=== PATIENT | female | born 1975 | race Caucasian/White ===

== ENCOUNTER 2023-02-12 10:24 | Outpatient (REF) | payer OTHER, SELFPAY ==
[2023-02-12 11:26] LABS: MANUAL DIFF FLAG NO
[2023-02-12 11:41] LABS: Basophils Percent Auto 0.9 % (0-2); Eosinophils Absolute Auto 0.1 X10*3/uL (0.0-0.4); Eosinophils Percent Auto 1.8 % (0-4); Hematocrit 43.3 % (37.0-47.0); Hemoglobin 14.6 g/dl (12.0-16.0); Imm Gran Abs Auto 0.01 X10*3/uL (0.00-0.03); Imm Gran Pct Auto 0.2 % (0.0-0.4); Lymphocytes Absolute Auto 1.5 X10*3/uL (1.2-4.9); Lymphocytes Percent Auto 33.9 % (20-40); Mean Corpuscular HGB Conc 33.7 g/dl (31.0-35.0); Mean Corpuscular Hemoglobin 30.7 pg (27.0-33.0); Monocytes Absolute Auto 0.3 X10*3/uL (0.1-1.2); Monocytes Percent Auto 7.7 % (2-11); Neutrophils Absolute Auto 2.4 x10*3/uL (2.0-8.3); Neutrophils Percent Auto 55.5 % (45-73); Platelet Count 259 X10*3/uL (160-400); Red Blood Count 4.76 X10*6/uL (4.20-5.50); Red Cell Distribution Width 12.2 % (11.0-16.0); White Blood Count 4.4 X10*3/uL (4.8-10.8)
[2023-02-12 12:40] LABS: Erythrocyte Sedimentation Rate 18 MM/HR (0-20)
[2023-02-13 10:23] LABS: Immunoglobulin E 1099 kU/L (<OR=114)
[2023-02-13 16:43] LABS: IgA 410 mg/dL (47-310); IgG 1759 mg/dL (600-1640); IgM 231 mg/dL (50-300)
== END 2023-02-12 10:25 | disposition home or self-care (01) ==
LOC: HO.LAB 10:24
PROVIDERS: PCP Internal Medicine; Visit Provider Hospitalist
DX: J45.50 Severe persistent asthma, uncomplicated (principal); J30.9 Allergic rhinitis, unspecified
CPT/HCPCS: 36415; 82784; 82785; 85025; 85652; 99202

== ENCOUNTER → 2023-05-15 09:56 | Outpatient (BNVA) | payer OTHER, SELFPAY | PROVIDERS: PCP Internal Medicine; Visit Provider Hospitalist | DX: J45.50 Severe persistent asthma, uncomplicated (principal); J30.9 Allergic rhinitis, unspecified | CPT/HCPCS: 99212 ==

== ENCOUNTER 2023-08-23 10:13 | Outpatient (AMB) | payer OTHER, SELFPAY ==
--- NOTE | 2023-08-23 10:19 | A.OFFVIS_ITS ---
Intake Vital Signs 08/23/23 10:20 Height 5 ft Weight 200 lb BMI 39.1 Pulse 74 Pulse Source Pulse Oximeter Pulse Oximetry (%) 98 Oxygen Delivery Method Room Air Intake Visit Reasons: asthma Agricultural Services Director Required: No Allergies No Known Allergies Allergy (Verified 08/23/23 10:21) HPI HPI Comments History of Present Illness Details The patient is a 47-year-old woman with severe persistent asthma and significant allergies. She is followed closely by allergy immunology in currently on Nucala for biologic therapy. However, she feels like her asthma is under control. Having daily symptoms. She is having to use her inhaler regularly. She also complains of significant nasal congestion postnasal drip and sinus is headaches. The appears that nasal congestion has been getting worse. The Nucala does help her symptoms but usually after 3 weeks after the injection that stops working and she becomes very symptomatic. She has not tried any other biologics. We did review her previous pulmonary function studies from 2019 which demonstrated significant small airways disease and significant air trapping due to her significant on her own she did recently have PFTs although I do not have those available. Will go ahead and try to maximize her respiratory therapy. In addition to this will go ahead and start her on therapies for her nasal congestion including budesonide she can also try. After the blood work will be able to consider other potential medication changes. 05/15/2023 the patient is here for a pulmonary follow-up visit. She continues to have a hard time with breathing. Always has significant asthma and wheezing. Patient symptoms are uncontrolled. She was switched over to Trelegy but she does not like the powder. She weather been Symbicort. Therefore she can go back on Symbicort I will add Spiriva to her regimen. She continues on Nucala. She feels the Nucala is partially helpful. We did review her blood work. Her IgE level is above a 1000 and eosinophil levels are okay right now. I do believe that with her significant rhinosinusitis asthma that she will do better on Dupixent. She will follow up with her manager compensation and decided this is a good option. In meantime will continue to optimize her respiratory therapy. 08/23/2023 the patient is here for a pulmonary follow-up visit. She is having hard time with her asthma. Having significant wheezing. Moderate severity. Has been using her rescue inhaler multiple times a day. She is very adherent to her respiratory therapy. However, only partially helpful. The patient had been on biologic therapy with Nucala. However was not helping and then she was stopped due to insurance issues. We did review her blood work demonstrating significant elevations in her IgE and allergies in addition to that she had elevations in the eosinophils prior to starting the IO 5 inhibitor. At this point I believe that based on her allergies in his symptoms the patient should be restarted on biologic therapy at this point Dupixent to better cover her asthma and also her allergic rhinitis. The patient in the meantime will need some prednisone from her going asthma exacerbation. She will continue with the nasal rinsing therapy and also respiratory therapy at this time. The patient also has some lower extremity edema. I believe that this is also affecting her respiratory status therefore will provide her with 3 days of Lasix to better improve her volume status. The patient already is practicing a low-sodium diet and she will continue. I suspect that is small that steroids that she is been on that is been causing her to have fluid retention. [facility] Medical History (Updated 08/25/23 @ 20:37 by Vidal Beard MD) Chronic allergic rhinitis Asthma Social History (Updated 02/12/23 @ 10:41 by Dinora Trammell Dave) Patient Tobacco Use Status: Never used Tobacco Review of Systems Const Denies fever(s) Eyes Denies change in vision ENT Reports nasal congestion, Reports nasal discharge, Reports nasal obstruction and Reports post nasal drip Card Denies chest pain Resp Reports cough and Reports wheezing GI Reports no additional complaints Musc Reports no additional complaints Skin/Breast Denies rash Neuro Reports no additional complaints Sinan/Lymph Denies easy bruising and Denies lymphadenopathy Aller/Immun Reports wheezing Physical Exam Vital Signs: Last Vital Signs Pulse 74 08/23/23 10:20 Pulse Ox 98 08/23/23 10:20 Oxygen Delivery Method Room Air 08/23/23 10:20 BMI result Body Mass Index 39.1 Const General: healthy appearing and comfortable HEENT General nose exam: Abnormal mucous membranes and turbinates present erythematous Eyes General: appearance normal, both eyes and all related structures Neck Neck: Yes supple Chest Chest palpation & inspection: normal inspection of the chest Resp Effort & Inspection: prolonged expiratory phase Auscultation: wheezes and diminished lung sounds Cardio Rate: regular rate Rhythm: regular rhythm Heart sounds: S1 normal heart sound present and S2 normal heart sound present GI Palpation (GI): Soft to palpation Skin General skin exam: no rashes or lesions noted Extrem General: No clubbing, No cyanosis and Yes edema Immunizations pneumoc 20-mindy conj-dip cr(PF) 0.5 mL IM syringe Performing Provider: Vidal Beard MD Performing Location: [facility] [place] Pul[facility] Administered by: Sintia Streeter LPN on 08/23/23 10:55 Dose Route Admin Location Dispensed Lot Number Expiration Date NDC Mercerizing Range Feeder 0.5 mL IM Left Deltoid 0.5 mL [id number] 10/01/24 2648-7793-35 [employer] VIS Given Date VIS Provided VIS Publication Date 08/23/23 Single Vaccine 23 Eligibility Eligibility Date Funding Source Not [facility] Eligible 08/23/23 Private Assessment & Plan Assessment & Plan (1) Asthma: Code(s): J45.909 - Unspecified asthma, uncomplicated Qualifiers: Asthma complication type: with acute exacerbation Asthma persistence: persistent Asthma severity: severe Qualified Code(s): J45.51 - Severe persistent asthma with (acute) exacerbation (2) Chronic allergic rhinitis: Code(s): J30.9 - Allergic rhinitis, unspecified Plan continue symbicort continue Spiriva JUAN as needed. Has a nebulizer available start Prednisone taper lasix x 3 days continue zyrtec continue Singulair Neti bottle stopped Nucala, start Dupixent F/U 2-3 months Orders: Orders Pneumococcal 20 Immunization 08/23/23 Z23 - Encounter for immunization Medications: New furosemide (Lasix) 20 mg PO DAILY 5 days 5 tabs 0RF prednisone PO daily; Take 2 tabs daily x 5 days, then 1 tablet daily x 5 days 10 days 15 tabs 0RF Coding Level of Care Code Est Pt Level 4 (56946) Diagnoses Severe persistent asthma with acute exacerbation J45.51 Asthma complication type: with acute exacerbation Asthma persistence: persistent Asthma severity: severe Chronic allergic rhinitis J30.9 Time Spent (min) 17
[2023-08-23 10:20] VITALS: PULSE 74; O2SAT 98; BMI 39.1
== END 2023-08-23 10:44 | disposition home or self-care (01) ==
PROVIDERS: PCP Internal Medicine; Visit Provider Hospitalist
DX: J45.51 Severe persistent asthma with (acute) exacerbation (principal); J30.9 Allergic rhinitis, unspecified
CPT/HCPCS: 99214

== ENCOUNTER → 2023-08-23 10:13 | Outpatient (BNVA) | payer OTHER, SELFPAY | PROVIDERS: PCP Internal Medicine; Visit Provider Hospitalist | DX: J45.51 Severe persistent asthma with (acute) exacerbation (principal); J30.9 Allergic rhinitis, unspecified; Z79.899 Other long term (current) drug therapy; Z23 Encounter for immunization | CPT/HCPCS: 90471; 90677; 99212 ==

== ENCOUNTER 2023-11-27 10:18 | Outpatient (AMB) | payer OTHER, SELFPAY ==
--- NOTE | 2023-11-27 10:37 | A.OFFVIS_ITS ---
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 She is followed closely by allergy immunology in currently on Nucala for biologic therapy. However, she feels like her asthma is under control. Having daily symptoms. She is having to use her inhaler regularly. She also complains of significant nasal congestion postnasal drip and sinus is headaches. The appears that nasal congestion has been getting worse. The Nucala does help her symptoms but usually after 3 weeks after the injection that stops working and she becomes very symptomatic. She has not tried any other biologics. We did review her previous pulmonary function studies from 2019 which demonstrated significant small airways disease and significant air trapping due to her significant on her own she did recently have PFTs although I do not have those available. Will go ahead and try to maximize her respiratory therapy. In addition to this will go ahead and start her on therapies for her nasal congestion including budesonide she can also try. After the blood work will be able to consider other potential medication changes. 05/15/2023 the patient is here for a pulmonary follow-up visit. She continues to have a hard time with breathing. Always has significant asthma and wheezing. Patient symptoms are uncontrolled. She was switched over to Trelegy but she does not like the powder. She weather been Symbicort. Therefore she can go back on Symbicort I will add Spiriva to her regimen. She continues on Nucala. She feels the Nucala is partially helpful. We did review her blood work. Her IgE level is above a 1000 and eosinophil levels are okay right now. I do believe that with her significant rhinosinusitis asthma that she will do better on Dupixent. She will follow up with her lining stitcher and decided this is a good option. In meantime will continue to optimize her respiratory therapy. 08/23/2023 the patient is here for a pulmonary follow-up visit. She is having hard time with her asthma. Having significant wheezing. Moderate severity. Has been using her rescue inhaler multiple times a day. She is very adherent to her respiratory therapy. However, only partially helpful. The patient had been on biologic therapy with Nucala. However was not helping and then she was stopped due to insurance issues. We did review her blood work demonstrating significant elevations in her IgE and allergies in addition to that she had elevations in the eosinophils prior to starting the IO 5 inhibitor. At this point I believe that based on her allergies in his symptoms the patient should be restarted on biologic therapy at this point Dupixent to better cover her asthma and also her allergic rhinitis. The patient in the meantime will need some prednisone from her going asthma exacerbation. She will continue with the nasal rinsing therapy and also respiratory therapy at this time. The patient also has some lower extremity edema. I believe that this is also affecting her respiratory status therefore will provide her with 3 days of Lasix to better improve her volume status. The patient already is practicing a low-sodium diet and she will continue. I suspect that is small that steroids that she is been on that is been causing her to have fluid retention. 11/27/2023 the patient is here for a pulmonary follow-up visit. She has doing a lot better. She started the Dupixent injections. She has been tolerating them well. Her asthma has been significantly improved. She has been able to c ut down on some of the inhalers. As far as adverse effects she has noticed some heaviness with the eyes and some nasal congestion but it is tolerable. Will continue to monitor for any evidence of conjunctivitis. In the meantime the patient has been off prednisone which is very reassuring. Her respiratory exam is also reassuring. She did complete the 3 days of the Lasix with improvement in her volume status and she has continue a low-sodium diet. No laboratories or x-rays to review this time. Will follow-up in 6 months. [facility] Medical History (Updated 11/27/23 @ 17:32 by Vidal Beard MD) Chronic allergic rhinitis Asthma Social History (Updated 02/12/23 @ 10:41 by CALDERON Sharma) Patient Tobacco Use Status: Never used Tobacco Review of Systems Const Denies fever(s) Eyes Denies change in vision ENT Reports nasal congestion, Reports nasal discharge, Reports nasal obstruction and Reports post nasal drip Card Denies chest pain Resp Denies cough and Denies wheezing GI Reports no additional complaints Musc Reports no additional complaints Skin/Breast Denies rash Neuro Reports no additional complaints Sinan/Lymph Denies easy bruising and Denies lymphadenopathy Aller/Immun Denies wheezing Physical Exam Vital Signs: Last Vital Signs Pulse 73 11/27/23 10:38 Pulse Ox 97 11/27/23 10:38 Oxygen Delivery Method Room Air 11/27/23 10:38 BMI result Body Mass Index 37.1 Const General: healthy appearing and comfortable HEENT General nose exam: Abnormal mucous membranes and turbinates present erythematous Eyes General: appearance normal, both eyes and all related structures Neck Neck: Yes supple Chest Chest palpation & inspection: normal inspection of the chest Resp Effort & Inspection: normal respiratory effort and No prolonged expiratory phase Auscultation: clear to auscultation bilaterally, no wheezes and lung sounds not diminished Cardio Rate: regular rate Rhythm: regular rhythm Heart sounds: S1 normal heart sound present and S2 normal heart sound present GI Palpation (GI): Soft to palpation Skin General skin exam: no rashes or lesions noted Extrem General: No clubbing, No cyanosis and Yes edema Assessment & Plan Assessment & Plan (1) Asthma: Code(s): J45.909 - Unspecified asthma, uncomplicated Qualifiers: Asthma complication type: uncomplicated Asthma persistence: persistent Asthma severity: severe Qualified Code(s): J45.50 - Severe persistent asthma, uncomplicated (2) Chronic allergic rhinitis: Code(s): J30.9 - Allergic rhinitis, unspecified Plan continue symbicort continue Spiriva JUAN as needed. Has a nebulizer available continue zyrtec continue Singulair Neti bottle continue Dupixent F/U 6 months Coding Level of Care Code Est Pt Level 4 (55162) Diagnoses Severe persistent asthma without complication J45.50 Asthma complication type: uncomplicated Asthma persistence: persistent Asthma severity: severe Chronic allergic rhinitis J30.9 Time Spent (min) 16
[2023-11-27 10:38] VITALS: PULSE 73; O2SAT 97; BMI 37.1
== END 2023-11-27 10:49 | disposition home or self-care (01) ==
PROVIDERS: PCP Internal Medicine; Visit Provider Hospitalist
DX: J45.50 Severe persistent asthma, uncomplicated (principal); J30.9 Allergic rhinitis, unspecified
CPT/HCPCS: 99214

== ENCOUNTER → 2023-11-27 10:18 | Outpatient (BNVA) | payer OTHER, SELFPAY | PROVIDERS: PCP Internal Medicine; Visit Provider Hospitalist | DX: J45.50 Severe persistent asthma, uncomplicated (principal); J30.9 Allergic rhinitis, unspecified | CPT/HCPCS: 99212 ==

== ENCOUNTER 2024-05-29 10:06 | Outpatient (AMB) | payer OTHER, SELFPAY ==
--- NOTE | 2024-05-29 10:18 | MHC.OFFVIS ---
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 She is followed closely by allergy immunology in currently on Nucala for biologic therapy. However, she feels like her asthma is under control. Having daily symptoms. She is having to use her inhaler regularly. She also complains of significant nasal congestion postnasal drip and sinus is headaches. The appears that nasal congestion has been getting worse. The Nucala does help her symptoms but usually after 3 weeks after the injection that stops working and she becomes very symptomatic. She has not tried any other biologics. We did review her previous pulmonary function studies from 2019 which demonstrated significant small airways disease and significant air trapping due to her significant on her own she did recently have PFTs although I do not have those available. Will go ahead and try to maximize her respiratory therapy. In addition to this will go ahead and start her on therapies for her nasal congestion including budesonide she can also try. After the blood work will be able to consider other potential medication changes. 05/15/2023 the patient is here for a pulmonary follow-up visit. She continues to have a hard time with breathing. Always has significant asthma and wheezing. Patient symptoms are uncontrolled. She was switched over to Trelegy but she does not like the powder. She weather been Symbicort. Therefore she can go back on Symbicort I will add Spiriva to her regimen. She continues on Nucala. She feels the Nucala is partially helpful. We did review her blood work. Her IgE level is above a 1000 and eosinophil levels are okay right now. I do believe that with her significant rhinosinusitis asthma that she will do better on Dupixent. She will follow up with her municipal engineer and decided this is a good option. In meantime will continue to optimize her respiratory therapy. 08/23/2023 the patient is here for a pulmonary follow-up visit. She is having hard time with her asthma. Having significant wheezing. Moderate severity. Has been using her rescue inhaler multiple times a day. She is very adherent to her respiratory therapy. However, only partially helpful. The patient had been on biologic therapy with Nucala. However was not helping and then she was stopped due to insurance issues. We did review her blood work demonstrating significant elevations in her IgE and allergies in addition to that she had elevations in the eosinophils prior to starting the IO 5 inhibitor. At this point I believe that based on her allergies in his symptoms the patient should be restarted on biologic therapy at this point Dupixent to better cover her asthma and also her allergic rhinitis. The patient in the meantime will need some prednisone from her going asthma exacerbation. She will continue with the nasal rinsing therapy and also respiratory therapy at this time. The patient also has some lower extremity edema. I believe that this is also affecting her respiratory status therefore will provide her with 3 days of Lasix to better improve her volume status. The patient already is practicing a low-sodium diet and she will continue. I suspect that is small that steroids that she is been on that is been causing her to have fluid retention. 11/27/2023 the patient is here for a pulmonary follow-up visit. She has doing a lot better. She started the Dupixent injections. She has been tolerating them well. Her asthma has been significantly improved. She has been able to cut down on some of the inhalers. As far as adverse effects she has noticed some heaviness with the eyes and some nasal congestion but it is tolerable. Will continue to monitor for any evidence of conjunctivitis. In the meantime the patient has been off prednisone which is very reassuring. Her respiratory exam is also reassuring. She did complete the 3 days of the Lasix with improvement in her volume status and she has continue a low-sodium diet. No laboratories or x-rays to review this time. Will follow-up in 6 months. 05/29/2024 the patient is here for pulmonary follow-up visit. Overall the patient is doing a lot better. The Dupixent injections have been very affecting beneficial. She has not seen any significant adverse effects from the injection. She is tolerating well she has been off prednisone which is reassuring. She has continue the Symbicort although she has not required the Spiriva and also reassuring. Still having nasal congestion at times. And still gets short of breath at times. We did review her last PFTs from 2021 demonstrating slight mild restrictive ventilatory defect. Will plan to repeat the PFTs in the next year or so. Clinically the patient is doing well so we can hold off and discuss during the next visit. [facility] Medical History (Updated 11/27/23 @ 17:32 by Vidal Beard MD) Chronic allergic rhinitis Asthma Social History (Updated 02/12/23 @ 10:41 by CALDERON Sharma) Patient Tobacco Use Status: Never used Tobacco Review of Systems Const Denies fever(s) Eyes Denies change in vision ENT Reports nasal congestion, Reports nasal discharge, Reports nasal obstruction and Reports post nasal drip Card Denies chest pain Resp Denies cough and Denies wheezing GI Reports no additional complaints Musc Reports no additional complaints Skin/Breast Denies rash Neuro Reports no additional complaints Sinan/Lymph Denies easy bruising and Denies lymphadenopathy Aller/Immun Denies wheezing Physical Exam Vital Signs: Last Vital Signs Pulse 65 05/29/24 10:19 Pulse Ox 98 05/29/24 10:19 Oxygen Delivery Method Room Air 05/29/24 10:19 BMI result Body Mass Index 37.1 Const General: healthy appearing and comfortable HEENT General nose exam: Abnormal mucous membranes and turbinates present erythematous Eyes General: appearance normal, both eyes and all related structures Neck Neck: Yes supple Chest Chest palpation & inspection: normal inspection of the chest Resp Effort & Inspection: normal respiratory effort and No prolonged expiratory phase Auscultation: clear to auscultation bilaterally, no wheezes and lung sounds not diminished Cardio Rate: regular rate Rhythm: regular rhythm Heart sounds: S1 normal heart sound present and S2 normal heart sound present GI Palpation (GI): Soft to palpation Skin General skin exam: no rashes or lesions noted Extrem General: No clubbing, No cyanosis and Yes edema Assessment & Plan Assessment & Plan (1) Asthma: Code(s): J45.909 - Unspecified asthma, uncomplicated Category: Medical Qualifiers: Asthma complication type: uncomplicated Asthma persistence: persistent Asthma severity: severe Qualified Code(s): J45.50 - Severe persistent asthma, uncomplicated (2) Chronic allergic rhinitis: Code(s): J30.9 - Allergic rhinitis, unspecified Category: Medical Plan continue symbicort stop Spiriva JUAN as needed. Has a nebulizer available continue zyrtec continue Singulair Neti bottle continue Dupixent F/U 6-8 months Coding Level of Care Code Est Pt Level 4 (04443) Diagnoses Severe persistent asthma without complication J45.50 Asthma complication type: uncomplicated Asthma persistence: persistent Asthma severity: severe Chronic allergic rhinitis J30.9 Time Spent (min) 16
[2024-05-29 10:19] VITALS: PULSE 65; O2SAT 98; BMI 37.1
== END 2024-05-29 10:33 | disposition home or self-care (01) ==
PROVIDERS: PCP Internal Medicine; Visit Provider Hospitalist
DX: J45.50 Severe persistent asthma, uncomplicated (principal); J30.9 Allergic rhinitis, unspecified
CPT/HCPCS: 99214

== ENCOUNTER → 2024-05-29 10:06 | Outpatient (BNVA) | payer OTHER, SELFPAY | PROVIDERS: PCP Internal Medicine; Visit Provider Hospitalist | DX: J45.50 Severe persistent asthma, uncomplicated (principal); J30.9 Allergic rhinitis, unspecified | CPT/HCPCS: 99212 ==

== ENCOUNTER 2025-03-16 10:05 | Outpatient (AMB) | payer OTHER, SELFPAY ==
[2025-03-16 10:13] VITALS: BP 136/84; PULSE 61; O2SAT 97; BMI 36.8
--- NOTE | 2025-03-16 10:13 | A.OFFVIS_ITS ---
Vital Signs 03/16/25 10:13 Height 5 ft Weight 188 lb 7.924 oz BMI 36.8 BP 136/84 Blood Pressure Location Rt brachial Position Sitting Pulse 61 Pulse Source Pulse Oximeter Pulse Oximetry (%) 97 Oxygen Delivery Method Room Air Intake Visit Reasons: Asthma Allergies No Known Allergies Allergy (Verified 03/16/25 10:15) HPI Comments Details: The patient is a 49 year-old woman with severe persistent asthma and significant allergies. She is followed closely by allergy immunology in currently on Nucala for biologic therapy. However, she feels like her asthma is under control. Having daily symptoms. She is having to use her inhaler regularly. She also complains of significant nasal congestion postnasal drip and sinus is headaches. The appears that nasal congestion has been getting worse. The Nucala does help her symptoms but usually after 3 weeks after the injection that stops working and she becomes very symptomatic. She has not tried any other biologics. We did review her previous pulmonary function studies from 2019 which demonstrated significant small airways disease and significant air trapping due to her significant on her own she did recently have PFTs although I do not have those available. Will go ahead and try to maximize her respiratory therapy. In addition to this will go ahead and start her on therapies for her nasal congestion including budesonide she can also try. After the blood work will be able to consider other potential medication changes. 05/15/2023 the patient is here for a pulmonary follow-up visit. She continues to have a hard time with breathing. Always has significant asthma and wheezing. Patient symptoms are uncontrolled. She was switched over to Trelegy but she does not like the powder. She weather been Symbicort. Therefore she can go back on Symbicort I will add Spiriva to her regimen. She continues on Nucala. She feels the Nucala is partially helpful. We did review her blood work. Her IgE level is above a 1000 and eosinophil levels are okay right now. I do believe that with her significant rhinosinusitis asthma that she will do better on Dupixent. She will follow up with her resident services manager and decided this is a good option. In meantime will continue to optimize her respiratory therapy. 08/23/2023 the patient is here for a pulmonary follow-up visit. She is having hard time with her asthma. Having significant wheezing. Moderate severity. Has been using her rescue inhaler multiple times a day. She is very adherent to her respiratory therapy. However, only partially helpful. The patient had been on biologic therapy with Nucala. However was not helping and then she was stopped due to insurance issues. We did review her blood work demonstrating significant elevations in her IgE and allergies in addition to that she had elevations in the eosinophils prior to starting the IO 5 inhibitor. At this point I believe that based on her allergies in his symptoms the patient should be restarted on biologic therapy at this point Dupixent to better cover her asthma and also her allergic rhinitis. The patient in the meantime will need some prednisone from her going asthma exacerbation. She will continue with the nasal rinsing therapy and also respiratory therapy at this time. The patient also has some lower extremity edema. I believe that this is also affecting her respiratory status therefore will provide her with 3 days of Lasix to better improve her volume status. The patient already is practicing a low-sodium diet and she will continue. I suspect that is small that steroids that she is been on that is been causing her to have fluid retention. 11/27/2023 the patient is here for a pulmonary follow-up visit. She has doing a lot better. She started the Dupixent injections. She has been tolerating them well. Her asthma has been significantly improved. She has been able to cut down on some of the inhalers. As far as adverse effects she has noticed some heaviness with the eyes and some nasal congestion but it is tolerable. Will continue to monitor for any evidence of conjunctivitis. In the meantime the patient has been off prednisone which is very reassuring. Her respiratory exam is also reassuring. She did complete the 3 days of the Lasix with improvement in her volume status and she has continue a low-sodium diet. No laboratories or x-rays to review this time. Will follow-up in 6 months. 05/29/2024 the patient is here for pulmonary follow-up visit. Overall the patient is doing a lot better. The Dupixent injections have been very affecting beneficial. She has not seen any significant adverse effects from the injection. She is tolerating well she has been off prednisone which is reassuring. She has continue the Symbicort although she has not required the Spiriva and also reassuring. Still having nasal congestion at times. And still gets short of breath at times. We did review her last PFTs from 2021 demonstrating slight mild restrictive ventilatory defect. Will plan to repeat the PFTs in the next year or so. Clinically the patient is doing well so we can hold off and discuss during the next visit. 03/16/2025 the patient is here for a pulmonary follow-up visit. Overall the patient has been responding well to Dupixent injections. No evidence of any side effects. Still the now going to the springtime she has a hard time with her nasal congestion and chronic rhinitis. She does use her fluticasone nasal spray. She also continues on Zyrtec and Singulair while being on Dupixent. She also continues uses respiratory inhalers as prescribed. Still has significant nasal congestion with a very much inflamed turbinates. The patient does use the Neti bottle for Ketan. She understands she can only use distilled water along with a packet that recommends. Will go ahead and provide budesonide for her in order to further treat her respiratory airways at least for a month and then she can go back to the biggest own. Patient will return in 6 months. If she has any issues of any worsening symptoms he will call for an earlier assessment. Also, an ENT evaluation would be helpful in the future. [facility] Medical History (Updated 11/27/23 @ 17:32 by Vidal Beard MD) Chronic allergic rhinitis Asthma Social History Patient Tobacco Use Status: Never used Tobacco Review of Systems Const Denies fever(s) Eyes Denies change in vision ENT Reports nasal congestion, Reports nasal discharge, Reports nasal obstruction and Reports post nasal drip Card Denies chest pain Resp Denies cough and Denies wheezing GI Reports no additional complaints Musc Reports no additional complaints Skin/Breast Denies rash Neuro Reports no additional complaints Sinan/Lymph Denies easy bruising and Denies lymphadenopathy Aller/Immun Denies wheezing Physical Exam Vital Signs: Last Vital Signs Pulse 61 03/16/25 10:13 BP 136/84 03/16/25 10:13 Pulse Ox 97 03/16/25 10:13 Oxygen Delivery Method Room Air 03/16/25 10:13 BMI result Body Mass Index 36.8 Const General: healthy appearing and comfortable HEENT General nose exam: Abnormal mucous membranes and turbinates present erythematous Eyes General: appearance normal, both eyes and all related structures Neck Neck: Yes supple Chest Chest palpation & inspection: normal inspection of the chest Resp Effort & Inspection: normal respiratory effort and No prolonged expiratory phase Auscultation: clear to auscultation bilaterally, no wheezes and lung sounds not diminished Cardio Rate: regular rate Rhythm: regular rhythm Heart sounds: S1 normal heart sound present and S2 normal heart sound present GI Palpation (GI): Soft to palpation Skin General skin exam: no rashes or lesions noted Extrem General: No clubbing, No cyanosis and Yes edema Assessment & Plan Assessment & Plan (1) Asthma: Code(s): J45.909 - Unspecified asthma, uncomplicated Category: Medical Qualifiers: Asthma complication type: uncomplicated Asthma persistence: persistent Asthma severity: severe Qualified Code(s): J45.50 - Severe persistent asthma, uncomplicated (2) Chronic allergic rhinitis: Code(s): J30.9 - Allergic rhinitis, unspecified Category: Medical Plan continue symbicort stop Spiriva JUAN as needed. Has a nebulizer available continue zyrtec continue Singulair Neti bottle start BUdesonide consider pseudophed if BP is ok continue Dupixent F/U 6-8 months Medications: Changed From budesonide 0.5 mg (2 mL) inhalation BID 30 days 120 mL 0RF To budesonide 0.5 mg (2 mL) inhalation DAILY 30 days 60 mL 2RF Coding Level of Care Code Est Pt Level 4 (99008) Diagnoses Severe persistent asthma without complication J45.50 Asthma complication type: uncomplicated Asthma persistence: persistent Asthma severity: severe Chronic allergic rhinitis J30.9 Time Spent (min) 16
--- OUTSIDE RECORDS SUMMARY | 2025-03-16 11:46 | XMS_ITS | Clinical Summary ---
Author Organization [facility] Address [address] [place] [address] Care Team Providers Care Pharmacovigilance Specialist Name Role Phone Unavailable Primary Care Provider Unavailabl e Source Comments PLEASE NOTE, if this patient is a minor, it may be UNLAWFUL to discuss sensitive information that is contained in these records (such as FAMILY PLANNING, MENTAL HEALTH or SUBSTANCE ABUSE) with the minor patient's parent or other person without the patient's specific authorization.[facility] Allergies No known active allergies Medications ibuprofen (ADVIL,MOTRIN) 600 mg tabletIndication s:Occipital headache Take 1 Tab by mouth 1 to 2 (one to two) times daily as needed for pain. 60 Tab 3 06/19/2013 Active lisinopril-hydro chlorothiazide (PRINZIDE,ZESTOR ETIC) 10-12.5 mg per tabletIndication s:HTN (hypertension) Take 1 Tab by mouth once daily. 30 Tab 3 11/19/2013 Active Active Problems Problem Noted Date Diagnosed Date Occipital headache 06/19/2013 HTN (hypertension) 06/19/2013 DM (diabetes mellitus), gestational ([facility]) Immunizations Immunization Administration Dates Next Due Pfizer-BioNTech COVID-19 Vac cine Bivalent, (DOMINGUEZ PFIZER-BIONTECH COVID-19 VACCINE BIVALENT, (DOMINGUEZ CAP 11/17/2022 Social History Tobacco Use Types Packs/Day Years Used Date Smoking Tobacco: Never Alcohol Use Standard Drinks/Week Comments Yes 0.8 (1 standard drink = 0.6 oz p ure alcohol) Comments No Sex and Gender Information Value Date Recorded Sex Assigned at Not on file Legal Sex Female 10:43 AM PDT Gender Identity Not on file Sexual Orientation Not on file Last Filed Vital Signs Vital Sign Reading Time Taken Comments Blood Pressure 136/72 06/24/2013 5:12 PM EDT Pulse 60 06/24/2013 5:12 PM EDT Temperature - - Respiratory Rate 16 06/24/2013 5:12 PM EDT Oxygen Saturation - - Inhaled Oxygen Concentration - - Weight - - Height - - Body Mass Index - - Plan of Treatment Health Maintenance Due Date Last Done Comments Anxiety Screening 1973 Diabetes Screening 1973 HPV Screening 1973 Hepatitis C Screening 1973 Lipid Screening 1973 Pap + HPV 1973 Tobacco Screening 1973 HIV Screening 1988 Imm-DTaP/Tdap/Td (1 - Tdap) 1992 Imm-Hepatitis B (1 of 3 - 19 + 3-dose series) 1992 Cervical Cancer Screening 1994 Pap Smear 1994 Breast Cancer Screening (Mammogram) 2013 Hypertension Screening (#1) 06/24/2014 CT Colonography 2018 Colonoscopy 2018 Colorectal Cancer Screening 2018 FIT/gFOBT 2018 Fecal DNA 2018 Flexible Sigmoidoscopy 2018 Imm-Zoster, Recombinant (1 of 2) 2023 Ffh-[id number]-24 ( season) 2024 022, 09/07/2021 Imm-Influenza (#1) 2024 Alcohol and Drug Screen 12/02/2024 Depression Annual Screen 12/02/2024 Cervical Ablation/Cold-Knife Conization Discontinued Cervical Cryotherapy Discontinued Colposcopy Discontinued Endometrial Biopsy Discontinued Excision/Leep Discontinued HPV Genotyping Discontinued Vaginal Pap Discontinued Vulvoscopy Discontinued Insurance [employer] [facility] Member Subscriber Plan / Payer (Ef fective 2022-Present) Name:Ondina Carr Relation to Subscriber:Self Name:Ondina Carr Payer ID:[id number] Group ID:[id number] Type:Medicaid Address: [address] [id number]
--- OUTSIDE RECORDS SUMMARY | 2025-03-16 11:46 | XMS_ITS | Clinical Summary ---
Author Organization [address] [facility] Address [address] [place] [address] Phone Care Team Providers Care Accounting Assistant Name Role Phone Elizabeth Bunn MD Primary Care Provider [phone] Allergies Active Allergy Reactions Criticality Noted Date Comments Apple 06/17/2018 Oral allergy syndrome [place] (Prunus Persica) 06/17/2018 Oral allergy syndrome Pear 06/17/2018 Oral allergy syndrome Medications inhalational spacing device inhaler 1 Device by Not Applicable route. 03/25/20 18 Active ibuprofen (ADVIL,MOTRIN ) 600 mg tablet Take 1 tablet (600 mg total) by mouth. 06/19/20 13 Active fluticasone propionate (FLONASE) 50 mcg/actuation nasal spray Administer 1 spray into affected nostril(s). 08/02/20 20 Active EPINEPHrine (EpiPen 2-Edison) 0.3 mg/0.3 mL injection Inject 0.3 mL (0.3 mg total) as directed. 08/28/20 24 Active cetirizine (ZyrTEC) 10 mg tablet Take 1 tablet (10 mg total) by mouth. 08/28/20 24 025 Active budesonide-fo rmoteroL (SYMBICORT) 160-4.5 mcg/actuation inhaler Inhale 2 puffs by mouth. 08/28/20 24 Active albuterol HFA (PROAIR HFA ; PROVENTIL HFA ; VENTOLIN HFA) 90 mcg/actuation inhaler Inhale 2 puffs by mouth. 08/28/20 Active azelastine (ASTELIN) 137 mcg (0.1 %) nasal spray Administer 2 sprays into affected nostril(s). 08/02/20 Active montelukast (SINGULAIR) 10 mg tablet Take 1 tablet (10 mg total) by mouth. 08/28/20 Active Dupixent Pen 300 mg/2 mL pen 08/18/20 Active triamcinolone (NASACORT) 55 mcg nasal inhaler INHALE 1 TO 2 SPRAYS EACH NOSTRIL ONCE A DAY 05/26/20 Active Vitamin D3 50 mcg (2,000 unit) tablet TAKE 1 TABLET BY MOUTH EVERY DAY 90 tablet 1 02/23/20 Active amLODIPine (NORVASC) 10 mg tablet Take 1 tablet (10 mg total) by mouth 1 (one) time each day. 30 each 03/09/20 25 Active cholecalcifer ol (VITAMIN D-3) 50 mcg (2,000 unit) tablet Take 1 tablet (2,000 Units total) by mouth 1 (one) time each day. 08/29/20 025 Discontinued lisinopril (PRINIVIL,ZES TRIL) 40 mg tablet Take 1 tablet (40 mg total) by mouth 1 (one) time each day. 90 each 11/26/20 24 025 Discontinued(D ose adjustment) amLODIPine (NORVASC) 5 mg tablet Take 1 tablet (5 mg total) by mouth 1 (one) time each day. 30 each 12/01/20 24 025 Discontinued(D ose adjustment) polyethylene glycol (Golytely) 236-22.74-6.7 4 -5.86 gram solution Take 4L by mouth once for one dose. May substitue any PEG. Starting at 6PM the night before your procedure drink 1 8oz glasses at your own pace until you complete half of the gallon. Finish 2nd half of the gallon 5 hours before your procedure. 4000 mL 01/15/20 25 025 Discontinued(T herapy completed) bisacodyL (DULCOLAX) 5 mg EC tablet Take 2 tablets by mouth right before beginning bowel prep. See instructions provided by the office 2 tablet 01/15/20 25 025 Discontinued(T herapy completed) Active Problems Problem Noted Date Diagnosed Date De Quervain's tenosynovitis 10/06/2024 DM (diabetes mellitus), gestational 09/30/2024 Obesity (BMI 30-39.9) 02/20/2023 Left hip pain 08/02/2020 Moderate persistent asthma 10/15/2018 Perennial allergic conjunctivitis of both eyes 1 12/15/2017 Pollen-food allergy 10/15/2018 GERD (gastroesophageal reflux disease) 8 Snoring 12/28/2017 Overview (09/30/2024): 12/2017 Home Sleep Study did not reveal sleep apnea. 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: Mild on right and early on left Fibromyalgia 06/28/2017 Overview (09/30/2024): widespread pains, pos SS-A, SS-B antibodies Glucose intolerance (impaired glucose tolerance) 06/28/2017 Perennial allergic rhinitis 06/03/2017 HTN (hypertension) 06/19/2013 Occipital headache 06/19/2013 Encounters Date Type Department Care Team Description 03/09/2025 1:30 PM EDT Office Visit Internal Medicine - [place] [address] [phone] Elizabeth Bunn MD Primary hypertension (Primary Dx); Hypopigmentation of skin 02/23/2025 Telephone Internal Medicine [facility] [address] [phone] Elizabeth Bunn MD Traige: Pre-Op Deep Dental Cleaning/Extraction 01/29/2025 8:25 AM EST Anesthesia Event [facility] Endoscopy [address] [place] [address] Adan Spann DO 01/29/2025 6:49 AM EST - 01/29/2025 11:59 PM EST Hospital Encounter [facility] Endoscopy [address] [place] [address] Ne Arevalo MD Korobkov, Vitaliy, DO Weiss, Ashley, CRNA Colon cancer screening Discharge Disposition: Home or Self Care from Last 3 Months Immunizations Name Administration Dates Next Due Influenza Quadravalent, MDCK , 0.5ml, preservative free (Flucelvax) 6mo and older 08/27/2023 Influenza trivalent, 0.5mL, preservative free (Fluarix; FluLaval; Fluzone) ages 6mo and older (Afluria) 3 years and older 08/22/2017,10/31/2016 Influenza, Unspecified 09/10/2018 Reelio SARS-CoV-2 COVID-19, mRNA, LNP-S, preservative free 09/07/2021,02/05/2021,01/15/2021 Pneumococcal conjugate 20 va lent (Prevnar 20, PCV 20) 2mo and older 08/23/2023 Tdap Tetanus diptheria acell ular pertussis (Boostrix; Adacel) 7yo and older 08/27/2023 Surgical History Surgery Date Site/Laterality Comments HYSTERECTOMY 2009 PROCEDURE: HISTORICAL HYSTERECTOMY; COMMENT: for bleeding - fibroids BREAST LUMPECTOMY PROCEDURE: HISTORICAL BREAST LUMPECTOMY SECTION PROCEDURE: HISTORICAL DELIVERY BREAST BIOPSY PROCEDURE: BX BREAST; PERC NEEDLE CORE W/IMAG GUID Medical History Medical History Date Comments Hypertension 06/28/2017 DX:Hypertension Glucose intolerance (impaire d glucose tolerance) 06/28/2017 DX:Glucose intolerance (impa ired glucose tolerance) Vitamin D deficiency 11/04/2017 DX:Vitamin D deficiency Peripheral neuropathy 11/04/2017 DX:Periphe ral neuropathy Allergic rhinitis 06/03/2017 DX:Allergic rh initis 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: Mild on right and early on left Fibromyalgia 06/28/2017 DX:Fibromyalgia; COMMENT: widespread pains, pos SS-A, SS-B antibodies Snoring 12/28/2017 DX:Snoring; COMM ENT: 12/2017 Home Sleep Study did not reveal sleep apnea. GERD (gastroesophageal reflu x disease) 07/30/2018 DX:GERD (gastroesophageal re flux disease) History of Helicobacter pylo ri infection 07/30/2018 DX:History of Helicobacter p ylori infection Moderate persistent asthma 10/15/2018 DX:Mo derate persistent asthma Perennial allergic conjuncti vitis of both eyes 10/15/2018 DX:Perennial allergic conjun ctivitis of both eyes Perennial allergic rhinitis 10/15/2018 DX:P erennial allergic rhinitis Pollen-food allergy 10/15/2018 DX:Pollen-fo od allergy Obesity (BMI 30-39.9) 02/20/2023 DX:Obesity (BMI 30-39.9) Family History Medical History Relation Name Comments Breast cancer Aunt maternal in her 80 s Asthma Father Arthritis Mother Diabetes Mother Asthma Paternal Grandmother Colon cancer Neg Hx Ovarian cancer Neg Hx Uterine cancer Neg Hx Relation Name Status Comments Aunt maternal Alive Father Mother Paternal Grandmother Social History Tobacco Use Types Packs/Day Years Used Date Smoking Tobacco: Never Smokeless Tobacco: Never Alcohol Use Standard Drinks/Week Comments Yes 0 (1 standard drink = 0.6 oz pur e alcohol) OCC Housing Instability Answer Date Recorde d Are you worried that in the next 2 months you may not have stable housing? No 03/06/2025 Food Access & Nutrition Answer Date Rec orded Do you have access to a vari ety of food including fruits and vegetables? Yes 03/06/2025 Access to Healthcare Answer Date Record ed Within the last 3 months, ho w many times did you visit the emergency department for your medical care? 0 03/06/2025 Health Literacy Answer Date Recorded How often do you need to hav e someone help you when you read instructions, pamphlets, or other written material from your doctor or pharmacy? Rarely 03/06/2025 Caregiver: How often do you need to have someone help you when you read instructions, pamphlets, or other written material from your doctor or pharmacy? Not on file 03/06/2025 Financial Risk Answer Date Recorded How hard is it for you to pa y for the very basics like food, housing, medical care, and air conditioning / heating? Somewhat hard 03/06/2025 Transportation Answer Date Recorded Has the lack of transportati on kept you from meetings, work, or from getting things needed for daily living? No Has the lack of transportati on kept you from medical appointments or from getting medications? No 03/06/2025 Social Isolation Answer Date Recorded How often do you feel lonely or isolated from th ose around you? Often 03/06/2025 Food Risk Answer Date Recorded Within the past 12 months we worried whether our food would run out before we got money to buy more. Often true 03/06/2025 Within the past 12 months th e food we bought just didn't last and we didn't have money to get more. Often true 03/06/2025 Dependent Care Answer Date Recorded Do you need help finding or paying for care for your loved ones. For example, child development instructor or elderly care for an older adult? No 03/06/2025 Education Answer Date Recorded Do you think completing more education or training, like finishing a GED, going to college, or learning a trade, would be helpful for you? N/A 03/06/2025 Employment and Income Answer Date Recor ded During the last four weeks, have you been actively looking for work? No 03/06/2025 Living Situation Answer Date Recorded What is your living situation? 0 03/06/2025 Interpersonal Safety Answer Date Record ed Physical Abuse 01/29/2025 Verbal Abuse 01/29/2025 Comments Unknown Sex and Gender Information Value Date Recorded Sex Assigned at Female 01/28/2025 4:49 PM EST Legal Sex Female 2:25 AM EST Gender Identity Female 01/28/2025 4:49 PM EST Sexual Orientation Straight 01/29/2025 6: 47 AM EST Obstetrics History Last Filed Vital Signs Vital Sign Reading Time Taken Comments Blood Pressure 140/92 03/09/2025 1:23 PM EDT Pulse 80 03/09/2025 1:22 PM EDT Temperature 36.3 ??C (97.3 ??F) 01/29/2025 8:44 AM ES T Respiratory Rate 18 01/29/2025 9:04 AM EST Oxygen Saturation 98% 03/09/2025 1:22 PM EDT Inhaled Oxygen Concentration - - Weight 86.2 kg (190 lb) 03/09/2025 1:22 PM EDT Height 152.4 cm (5') 01/29/2025 8:04 AM EST Body Mass Index 37.11 01/29/2025 8:04 AM EST Plan of Treatment Upcoming Encounters Date Type Department Care Team (Late st Contact Info) Description 03/16/2025 12:00 PM EDT Consult Internal Medicine - [address] [phone] Elizabeth Bunn MD [address] [place] [phone] 06/09/2025 11:30 AM EDT Office Visit Internal Medicine - [address] [phone] Elizabeth Bunn MD [address] [address] Health Maintenance Due Date Last Done Comments Hepatitis B Vaccines (1 of 3 - 19+ 3-dose series) 1992 Cervical Cancer Screening: Pap Smear 1994 HIV Screening 11/10/2022 Zoster Vaccines (1 of 2) 2023 COVID-19 Vaccine ( season) 2024 11/17/2022, 09/07/2021, 02/05/2021, Additional history exists Breast Cancer Screening 03/15/2025 03/15/20 23, 10/06/2020, 09/07/2019, Additional history exists Influenza Vaccine (Season Ended) 2025 08/27/2023, 09/10/2018, 08/22/2017, Additional history exists Hypertension/CHF/CAD Annual BMP Blood Test 08/28/2025 08/28/2024, 08/28/2024 Depression Screening 03/06/2026 03/06/2025 Social Influencers of Health Screening 03/06/2026 03/06/2025 Cholesterol Screening (Lipid Panel) 08/28/2029 08/28/2024, 08/28/2024 DTaP,Tdap,and Td Vaccines (2 - Td or Tdap) 08/27/2033 08/27/2023 Colorectal Cancer Screening: Colonoscopy 01/29/2035 01/29/2025 Hepatitis C Screening Completed 03/28/2023 Pneumococcal Vaccine: 50+ Years Completed 08/23/2023 Pneumococcal Vaccine: Pediatrics (0 to 5 Years) and At-Risk Patients (6 to 64 Years) Completed 08/23/2023 HIB Vaccines Aged Out No longer eligi ble based on patient's age to complete this topic HPV Vaccines Aged Out No longer eligi ble based on patient's age to complete this topic Hepatitis A Vaccines Aged Out No long er eligible based on patient's age to complete this topic IPV Vaccines Aged Out No longer eligi ble based on patient's age to complete this topic MMR Vaccines Aged Out No longer eligi ble based on patient's age to complete this topic Meningococcal ACWY Vaccine Aged Out N o longer eligible based on patient's age to complete this topic Meningococcal B Vaccine Aged Out No l onger eligible based on patient's age to complete this topic RSV Immunization Patients Under 20 months Aged Out No longer eligible based on patient's age to complete this topic Varicella Vaccines Aged Out No longer eligible based on patient's age to complete this topic Procedures Procedure Name Priority Date/Time Associated Diagnosis Comments COLONOSCOPY Routine 01/29/2025 8:43 AM EST Colon cancer screening ANNUAL BMP BLOOD TEST Routine 08/28/2024 LIPID PANEL Routine 08/28/2024 HEPATITIS C SCREENING Routine 03/28/2023 ZOHREH SCREENING DIGITAL Routine 03/15/2023 2:32 PM EDT Encounter for screening mammogram for malignant neoplasm of breast from Last 3 Months or Most Recently Relevant to Health Maintenance Results * COLONOSCOPY Anesthesia - MAC; [facility] ENDOSCOPY (01/29/2025 8:43 AM EST) Anatomical Region Laterality Modality Endoscopy 01/29/2025 8:28 AM EST Impressions 01/29/2025 8:44 AM EST - The entire examined colon is normal on direct and ? retroflexion views. ? - No specimens collected. Recommendation: ?- Discharge patient to home. ? - Repeat colonoscopy in 10 years for screening ? purposes. Narrative 01/29/2025 8:[address] [facility] GI Patient Name: Ondina Carr Procedure Date: 01/29/2025 8:28 AM Date of : 1975 Age: 49 Gender: Female Note Status: Finalized Attending MD: Ne Arevalo MD, Procedure Date No Time: 01/29/2025 Procedure: ? Colonoscopy Indications: ? Screening for colorectal malignant neoplasm Providers: ? Ne Arevalo MD Referring MD: ?Ne Arevalo MD Medicines: ? Monitored Anesthesia Care Complications: ? No immediate complications. Estimated Blood Loss: ? Estimated blood loss: none. Procedure: ? Pre-Anesthesia Assessment: ? - Prior to the procedure, a History and Physical was ? performed, and patient medications and allergies were ? reviewed. The patient is competent. The risks and ? benefits of the procedure and the sedation options and ? risks were discussed with the patient. All questions ? were answered and informed consent was obtained. ? Patient identification and proposed procedure were ? verified by the physician, the nurse, the manager hydraulic ? and the pulmonary function technician in the pre-procedure area in the ? endoscopy suite. Mental Status Examination: alert and ? oriented. Airway Examination: normal oropharyngeal ? airway and neck mobility. Respiratory Examination: ? clear to auscultation. CV Examination: normal. ? Prophylactic Antibiotics: The patient does not require ? prophylactic antibiotics. Prior Anticoagulants: The ? patient has taken no anticoagulant or antiplatelet ? agents. ASA Grade Assessment: II - A patient with mild ? systemic disease. After reviewing the risks and ? benefits, the patient was deemed in satisfactory ? condition to undergo the procedure. The anesthesia ? plan was to use monitored anesthesia care (MAC). ? Immediately prior to administration of medications, ? the patient was re-assessed for adequacy to receive ? sedatives. The heart rate, respiratory rate, oxygen ? saturations, blood pressure, adequacy of pulmonary ? ventilation, and response to care were monitored ? throughout the procedure. The physical status of the ? patient was re-assessed after the procedure. ? After I obtained informed consent, the scope was ? passed under direct vision. Throughout the procedure, ? the patient's blood pressure, pulse, and oxygen ? saturations were monitored continuously. The ? Colonoscope was introduced through the anus and ? advanced to the cecum, identified by appendiceal ? orifice and ileocecal valve. The colonoscopy was ? performed without difficulty. The patient tolerated ? the procedure well. The quality of the bowel ? preparation was good. Findings: ?The perianal and digital rectal examinations were ? normal. ? The entire examined colon appeared normal on direct ? and retroflexion views. Procedure Code(s): ? --- Professional --- ? G0121, Colorectal cancer screening; colonoscopy on ? individual not meeting criteria for high risk Diagnosis Code(s): ? --- Professional --- ? Z12.11, Encounter for screening for malignant neoplasm ? of colon CPT copyright 2020 [employer]. All rights reserved. The codes documented in this report are preliminary and upon telecommunications officer review may be revised to meet current compliance requirements. Ne Arevalo MD 01/29/2025 8:44:02 AM This report has been signed electronically.Ne Arevalo MD Number of Addenda: 0 Note Initiated On: 01/29/2025 8:28 AM Scope Withdrawal Time: 0 hours 5 minutes 7 seconds Scope In: 8:35:19 AM Scope Out: 8:42:43 AM ? Endoscopy Department at [facility] - [address] [place] [address], ? [place] [address] Procedure Note Ne Arevalo MD - 01/29/2025 [facility] GI Patient Name: Ondina Carr Procedure Date: 01/29/2025 8:28 AM Date of : 1975 Age: 49 Gender: Female Note Status: Finalized Attending MD: Ne Arevalo MD, Procedure Date No Time: 01/29/2025 Procedure: Colonoscopy Indications: Screening for colorectal malignant neoplasm Providers: Ne Arevalo MD Referring MD: Ne Arevalo MD Medicines: Monitored Anesthesia Care Complications: No immediate complications. Estimated Blood Loss: Estimated blood loss: none. Procedure: Pre-Anesthesia Assessment: - Prior to the procedure, a History and Physicalwas performed, and patient medications and allergieswere reviewed. The patient is competent. The risks and benefits of the procedure and the sedation optionsand risks were discussed with the patient. Allquestions were answered and informed consent was obtained. Patient identification and proposed procedure were verified by the physician, the nurse, theanesthetist and the pulmonary function technician in the pre-procedure area in the endoscopy suite. Mental Status Examination: alertand oriented. Airway Examination: normal oropharyngeal airway and neck mobility. Respiratory Examination: clear to auscultation. CV Examination: normal. Prophylactic Antibiotics: The patient does notrequire prophylactic antibiotics. Prior Anticoagulants: The patient has taken no anticoagulant or antiplatelet agents. ASA Grade Assessment: II - A patient withmild systemic disease. After reviewing the risks and benefits, the patient was deemed in satisfactory condition to undergo the procedure. The anesthesia plan was to use monitored anesthesia care (MAC). Immediately prior to administration of medications, the patient was re-assessed for adequacy to receive sedatives. The heart rate, respiratory rate, oxygen saturations, blood pressure, adequacy of pulmonary ventilation, and response to care were monitored throughout the procedure. The physical status ofthe patient was re-assessed after the procedure. After I obtained informed consent, the scope was passed under direct vision. Throughout theprocedure, the patient's blood pressure, pulse, and oxygen saturations were monitored continuously. The Colonoscope was introduced through the anus and advanced to the cecum, identified by appendiceal orifice and ileocecal valve. The colonoscopy was performed without difficulty. The patient tolerated the procedure well. The quality of the bowel preparation was good. Findings: The perianal and digital rectal examinations were normal. The entire examined colon appeared normal on direct and retroflexion views. Procedure Code(s): --- Professional --- G0121, Colorectal cancer screening; colonoscopy on individual not meeting criteria for high risk Diagnosis Code(s): --- Professional --- Z12.11, Encounter for screening for malignantneoplasm of colon CPT copyright 2020 [employer]. All rights reserved. The codes documented in this report are preliminary and upon telecommunications officer reviewmay be revised to meet current compliance requirements. Ne Arevalo MD 01/29/2025 8:44:02 AM This report has been signed electronically.Ne Arevalo MD Number of Addenda: 0 Note Initiated On: 01/29/2025 8:28 AM Scope Withdrawal Time: 0 hours 5 minutes 7 seconds Scope In: 8:35:19 AM Scope Out: 8:42:43 AM Endoscopy Department at [address] [phone] IMPRESSION: - The entire examined colon is normal on direct and retroflexion views. - No specimens collected. Recommendation: - Discharge patient to home. - Repeat colonoscopy in 10 years for screening purposes. Ne Arevalo MD GI~PROCEDURE ORDERABLES Fin al Result * Annual BMP Blood Test (08/28/2024) [facility] Annual BMP Blood Test abstracted Result [facility] Historical Provider HEALTH MAINTENANCE Final Result * Lipid panel (08/28/2024) [facility] LDL/HDL Ratio 3 <=4 Triglycerides 129 0 - 150 mg/dL Cholesterol 135 0 - 200 mg/dL HDL 41 >=40 mg/dL LDL Cholesterol 69 0 - 100 mg/dL Blood Venous blood specimen / Unknown Result [facility] Historical Provider LAB BLOOD ORDERABLES Esthela l Result * Hepatitis C Screening (03/28/2023) [facility] Hepatitis C Screening abstracted Result [facility] Historical Provider HEALTH MAINTENANCE Final Result * ZOHREH SCREENING DIGITAL (03/15/2023 2:32 PM EDT) Anatomical Region Laterality Modality Mammography 03/12/2023 10:0 4 AM EDT Narrative 03/15/2023 2:32 PM EDT [facility] Diagnostic Imaging Department [address] [place] [id number] Patient: ??ONDINA CARR ?/Age/Sex: 1975 - 47 - F Unit#: ??[id number] ? Location/Status: ??SPDIMAM/REG CLI ? Mnemonic/Ordering Site: ??DIGSC/SPMAM Ordering Physician: ??ELIZABETH BUNN Zohreh Screening Digital - 03/12/23 - 1029 EXAM: Zohreh Screening Digital EXAM DATE AND TIME: 03/12/2023 10:30 AM HISTORY: ??Screening. Previous bilateral breast biopsies, pathology benign. COMPARISON: ??10/06/20, 09/07/19, 08/07/19, 08/06/18, 12/07/16, 11/09/15 TECHNIQUE: CC and MLO views of both breasts were obtained using full field digital mammography. Bilateral digital breast tomosynthesis was performed in the MLO projection. Computer aided detection with [employer] 7.2-H and [employer] 3D 3.1 was employed. TISSUE DENSITY: c. The breasts are heterogeneously dense, which may obscure small masses. FINDINGS: A 3 cm circumscribed round mass with macrolobulated margins is unchanged in the upper outer left breast and contains a biopsy marker. A 1.4 cm circumscribed round mass with features compatible with a lymph node is unchanged elsewhere in the upper outer left breast. No suspicious masses, grouped microcalcifications, or areas of architectural distortion are seen. Few coarse, benign calcifications are present bilaterally. Skin and vascular calcifications are noted. IMPRESSION: No mammographic evidence of malignancy is seen. No significant change. A negative mammogram in the presence of a clinically suspicious palpable abnormality does not preclude the possibility of malignancy or alter the indications for biopsy. BI-RADS: ??Category 2: Benign RECOMMENDATION(S): 1: Routine screening mammogram BILATERAL in 1 year. [id number], [id number], 7025F Dictating Physician: ??LATISHA SON MD Electronically Signed by: ??LATISHA SON MD Dic Date/Time: ??03/15/23 1430 Sign date/Time: ??03/15/23 1432 Procedure Note Latisha Son MD - 01/03/2024 [facility] Diagnostic Imaging Department [address] [place] [address] Patient: BRUNOONDINA /Age/Sex: 1975 - 47 - F Unit#: [id number] Location/Status: [facility]/REG CLI Mnemonic/Ordering Site: [facility] [facility] Ordering Physician: ELIZABETH BUNN [facility] Screening Digital - 03/12/23 - 1029 EXAM: [facility] Screening Digital EXAM DATE AND TIME: 03/12/2023 10:30 AM HISTORY: Screening. Previous bilateral breast biopsies, pathologybenign. COMPARISON: 10/06/20, 09/07/19, 08/07/19, 08/06/18, 12/07/16, 11/09/15 TECHNIQUE: CC and MLO views of both breasts were obtained using fullfield digital mammography. Bilateral digital breast tomosynthesis was performedin the MLO projection. Computer aided detection with [employer] 7.2-H and[employer] 3D 3.1 was employed. TISSUE DENSITY: c. The breasts are heterogeneously dense, which mayobscure small masses. FINDINGS: A 3 cm circumscribed round mass with macrolobulated margins is unchangedin the upper outer left breast and contains a biopsy marker. A 1.4 cmcircumscribed round mass with features compatible with a lymph node is unchangedelsewhere in the upper outer left breast. No suspicious masses, grouped microcalcifications, or areas ofarchitectural distortion are seen. Few coarse, benign calcifications are presentbilaterally. Skin and vascular calcifications are noted. IMPRESSION: No mammographic evidence of malignancy is seen. No significant change. A negative mammogram in the presence of a clinically suspicious palpable abnormality does not preclude the possibility of malignancy or alter the indications for biopsy. BI-RADS: Category 2: Benign RECOMMENDATION(S): 1: Routine screening mammogram BILATERAL in 1 year. [address]007, [id number] 3342F, 7025F Dictating Physician: LATISHA SON MD Electronically Signed by: LATISHA SON MD Dic Date/Time: 03/15/23 1430 Sign date/Time: 03/15/23 1432 Elizabeth Bunn MD IMG BI PROCEDURES Final Result from Last 3 Months or Most Recently Relevant to Health Maintenance Insurance [facility] PLAN Care Teams Accounting Assistant Relationship Specialty Start Date End Date Elizabeth Bunn MD [address] [place] [id number] PCP - General 02/20/23
--- OUTSIDE RECORDS SUMMARY | 2025-03-16 11:46 | XMS_ITS | Encounter Summary ---
Author Organization [facility] Address [address] [place] [address] Care Team Providers Care Cut Plug Packer Name Role Phone Elizabeth Bunn MD Primary Care Provider [phone] Reason for Visit * Reason Onset Date Comments Traige: Pre-Op Deep Dental Cleaning/Extraction 0 02/23/2025 Encounter Details Date Type Department Care Team ([facility] st Contact Info) Description 02/23/2025 Telephone Internal Medicine - [place] [address] [phone] Elizabeth Bunn MD [address] [facility] [address] [place] [address] Traige: Pre-Op Deep Dental Cleaning/Extraction Social History Tobacco Use Types Packs/Day Years Used Date Smoking Tobacco: Never Smokeless Tobacco: Never Alcohol Use Standard Drinks/Week Comments Yes 0 (1 standard drink = 0.6 oz pur e alcohol) OCC Interpersonal Safety Answer Date Record ed Physical Abuse 01/29/2025 Verbal Abuse 01/29/2025 Comments Unknown Sex and Gender Information Value Date Recorded Sex Assigned at Female 01/28/2025 4:49 PM EST Legal Sex Female 2:25 AM EST Gender Identity Female 01/28/2025 4:49 PM EST Sexual Orientation Straight 01/29/2025 6: 47 AM EST documented as of this encounter Progress Notes * Tatyana López - 02/23/2025 10:04 AM EDT Slovenian Only PT reports they need Pre-Op appointment for medical clearance of upcoming dental appointment for deep cleaning. Pending dental appointment for medical clearance due to yoni blood pressure. PT: [phone] Brusher Tender scanning document in PT media documented in this encounter Plan of Treatment Upcoming Encounters Date Type Department Care Team (Late st Contact Info) Description 03/16/2025 12:00 PM EDT Consult Internal Medicine - [address] [phone] Elizabeth Bunn MD [address] [place] [phone] 06/09/2025 11:30 AM EDT Office Visit Internal Medicine - [address] [phone] Elizabeth Bunn MD [address] [place] [phone] documented as of this encounter Visit Diagnoses Not on filedocumented in this encounter Care Teams Cut Plug Packer Relationship Specialty Start Date End Date Elizabeth Bunn MD [address] [place] [phone] PCP - General 02/20/23 documented as of this encounter
== END 2025-03-16 10:33 | disposition home or self-care (01) ==
LOC: HO.HPS 10:05
PROVIDERS: PCP Internal Medicine; Visit Provider Hospitalist
DX: J45.50 Severe persistent asthma, uncomplicated (principal); J30.9 Allergic rhinitis, unspecified
CPT/HCPCS: 99214

== ENCOUNTER → 2025-03-16 10:05 | Outpatient (BNVA) | payer OTHER, SELFPAY | PROVIDERS: PCP Internal Medicine; Visit Provider Hospitalist | DX: J45.50 Severe persistent asthma, uncomplicated (principal); J30.9 Allergic rhinitis, unspecified | CPT/HCPCS: 99212 ==

== ENCOUNTER 2025-09-17 09:52 | Outpatient (AMB) | payer OTHER, SELFPAY ==
[2025-09-17 09:54] VITALS: BP 136/86; PULSE 70; O2SAT 96; BMI 37.5
--- NOTE | 2025-09-17 09:54 | A.OFFVIS_ITS ---
Vital Signs 09/17/25 09:54 Height 5 ft Weight 191 lb 12.835 oz BMI 37.5 BP 136/86 Blood Pressure Location Lt brachial Position Sitting Pulse 70 Pulse Source Pulse Oximeter Pulse Oximetry (%) 96 Oxygen Delivery Method Room Air Intake Visit Reasons: Asthma Telecommunications Facility Examiner Required: No Accompanied by: Self / Same As Patient Allergies No Known Allergies Allergy (Verified 09/17/25 09:58) HPI Comments Details: The patient is a 50 year-old woman with severe persistent asthma and significant allergies. She is followed closely by allergy immunology in currently on Nucala for biologic therapy. However, she feels like her asthma is under control. Having daily symptoms. She is having to use her inhaler regularly. She also complains of significant nasal congestion postnasal drip and sinus is headaches. The appears that nasal congestion has been getting worse. The Nucala does help her symptoms but usually after 3 weeks after the injection that stops working and she becomes very symptomatic. She has not tried any other biologics. We did review her previous pulmonary function studies from 2019 which demonstrated significant small airways disease and significant air trapping due to her significant on her own she did recently have PFTs although I do not have those available. Will go ahead and try to maximize her respiratory therapy. In addition to this will go ahead and start her on therapies for her nasal congestion including budesonide she can also try. After the blood work will be able to consider other potential medication changes. 05/15/2023 the patient is here for a pulmonary follow-up visit. She continues to have a hard time with breathing. Always has significant asthma and wheezing. Patient symptoms are uncontrolled. She was switched over to Trelegy but she does not like the powder. She weather been Symbicort. Therefore she can go ba ck on Symbicort I will add Spiriva to her regimen. She continues on Nucala. She feels the Nucala is partially helpful. We did review her blood work. Her IgE level is above a 1000 and eosinophil levels are okay right now. I do believe that with her significant rhinosinusitis asthma that she will do better on Dupixent. She will follow up with her land manager and decided this is a good option. In meantime will continue to optimize her respiratory therapy. 08/23/2023 the patient is here for a pulmonary follow-up visit. She is having hard time with her asthma. Having significant wheezing. Moderate severity. Has been using her rescue inhaler multiple times a day. She is very adherent to her respiratory therapy. However, only partially helpful. The patient had been on biologic therapy with Nucala. However was not helping and then she was stopped due to insurance issues. We did review her blood work demonstrating significant elevations in her IgE and allergies in addition to that she had elevations in the eosinophils prior to starting the IO 5 inhibitor. At this point I believe that based on her allergies in his symptoms the patient should be restarted on biologic therapy at this point Dupixent to better cover her asthma and also her allergic rhinitis. The patient in the meantime will need some prednisone from her going asthma exacerbation. She will continue with the nasal rinsing therapy and also respiratory therapy at this time. The patient also has some lower extremity edema. I believe that this is also affecting her respiratory status therefore will provide her with 3 days of Lasix to better improve her volume status. The patient already is practicing a low-sodium diet and she will continue. I suspect that is small that steroids that she is been on that is been causing her to have fluid retention. 11/27/2023 the patient is here for a pulmonary follow-up visit. She has doing a lot better. She started the Dupixent injections. She has been tolerating them well. Her asthma has been significantly improved. She has been able to cut down on some of the inhalers. As far as adverse effects she has noticed some heaviness with the eyes and some nasal congestion but it is tolerable. Will continue to monitor for any evidence of conjunctivitis. In the meantime the patient has been off prednisone which is very reassuring. Her respiratory exam is also reassuring. She did complete the 3 days of the Lasix with improvement in her volume status and she has continue a low-sodium diet. No laboratories or x-rays to review this time. Will follow-up in 6 months. 05/29/2024 the patient is here for pulmonary follow-up visit. Overall the patient is doing a lot better. The Dupixent injections have been very affecting beneficial. She has not seen any significant adverse effects from the injection. She is tolerating well she has been off prednisone which is reassuring. She has continue the Symbicort although she has not required the Spiriva and also reassuring. Still having nasal congestion at times. And still gets short of breath at times. We did review her last PFTs from 2021 demonstrating slight mild restrictive ventilatory defect. Will plan to repeat the PFTs in the next year or so. Clinically the patient is doing well so we can hold off and discuss during the next visit. 03/16/2025 the patient is here for a pulmonary follow-up visit. Overall the patient has been responding well to Dupixent injections. No evidence of any side effects. Still the now going to the springtime she has a hard time with her nasal congestion and chronic rhinitis. She does use her fluticasone nasal spray. She also continues on Zyrtec and Singulair while being on Dupixent. She also continues uses respiratory inhalers as prescribed. Still has significant nasal congestion with a very much inflamed turbinates. The patient does use the Neti bottle for Ketan. She understands she can only use distilled water along with a packet that recommends. Will go ahead and provide budesonide for her in order to further treat her respiratory airways at least for a month and then she can go back to the biggest own. Patient will return in 6 months. If she has any issues of any worsening symptoms he will call for an earlier assessment. Also, an ENT evaluation would be helpful in the future. 09/17/2025 the patient is here for pulmonary follow-up visit. Overall the patient has been doing fair. She does take the Dupixent he has been very affecting beneficial. Although she still has allergy symptoms nasal congestion postnasal drip cough. She continues use all her respiratory medications with improvement. Will go ahead and optimize her nasal sprays by adding Astelin nasal spray to her regimen. She is still can provide a nasal body rinse with budesonide to help her with the significant congestion. We did talk about other biologics including Tezspire as an option in the future if she continues to be symptomatic. She was also doing allergy shots but now she is no longer doing allergy shots because it was not recommended. For now will continue to monitor her closely. We can also consider ENT at some point in the future. Overall her respiratory medications are well she will continue with the Dupixent for now and will follow-up in the to assess her progress. [facility] Medical History (Updated 11/27/23 @ 17:32 by Vidal Beard MD) Chronic allergic rhinitis Asthma Social History Patient Tobacco Use Status: Never used Tobacco Review of Systems Const Denies fever(s) Eyes Denies change in vision ENT Reports nasal congestion, Reports nasal discharge, Reports nasal obstruction and Reports post nasal drip Card Denies chest pain Resp Denies cough and Denies wheezing GI Reports no additional complaints Musc Reports no additional complaints Skin/Breast Denies rash Neuro Reports no additional complaints Sinan/Lymph Denies easy bruising and Denies lymphadenopathy Aller/Immun Denies wheezing Physical Exam Vital Signs: Last Vital Signs Pulse 70 09/17/25 09:54 BP 136/86 09/17/25 09:54 Pulse Ox 96 09/17/25 09:54 Oxygen Delivery Method Room Air 09/17/25 09:54 BMI result Body Mass Index 37.5 Const General: healthy appearing and comfortable HEENT General nose exam: Abnormal mucous membranes and turbinates present erythematous Eyes General: appearance normal, both eyes and all related structures Neck Neck: Yes supple Chest Chest palpation & inspection: normal inspection of the chest Resp Effort & Inspection: normal respiratory effort and No prolonged expiratory phase Auscultation: clear to auscultation bilaterally, no wheezes and lung sounds not diminished Cardio Rate: regular rate Rhythm: regular rhythm Heart sounds: S1 normal heart sound present and S2 normal heart sound present GI Palpation (GI): Soft to palpation Skin General skin exam: no rashes or lesions noted Extrem General: No clubbing, No cyanosis and Yes edema Assessment & Plan Assessment & Plan (1) Asthma: Code(s): J45.909 - Unspecified asthma, uncomplicated Category: Medical Qualifiers: Asthma complication type: uncomplicated Asthma persistence: persistent Asthma severity: severe Qualified Code(s): J45.50 - Severe persistent asthma, uncomplicated (2) Chronic allergic rhinitis: Code(s): J30.9 - Allergic rhinitis, unspecified Category: Medical Plan continue symbicort JUAN as needed. Has a nebulizer available continue zyrtec start Azteline nasal spray continue Singulair Neti bottle restart BUdesonide consider pseudophed if BP is ok continue Dupixent F/U 6-8 months Medications: New azelastine-fluticasone 137-50 mcg/spray (Dymista) administer into each nostril 1 spray intranasal BID 23 grams 6RF Coding Level of Care Code Est Pt Level 4 (79161) Complex EM visit Add On G2211 Diagnoses Severe persistent asthma without complication J45.50 Asthma complication type: uncomplicated Asthma persistence: persistent Asthma severity: severe Chronic allergic rhinitis J30.9 Time Spent (min) 16
--- OUTSIDE RECORDS SUMMARY | 2025-09-17 11:31 | XMS_ITS ---
Author Name [facility] Organization Unknown Care Team Organization Name Specialty Phone Email Start Date End Da elias [facility] Laci Brooke [facility] 10/09/20222023
--- OUTSIDE RECORDS SUMMARY | 2025-09-17 11:31 | XMS_ITS | Clinical Summary ---
Author Organization [facility] Address [address] [place] [address] Care Team Providers Care Administrative Underwriter Name Role Phone Unavailable Primary Care Provider [...] HTN (hypertension) 06/19/2013 DM (diabetes mellitus), gestational Immunizations Immunization Administration Dates Next Due Pfizer-BioNTech [...] Screening 1973 Diabetes Screening 1973 HPV Screening (self-collect) 1973 HPV Screening 1973 Hepatitis C Screening [...] 2018 Fecal DNA 2018 Flexible Sigmoidoscopy 2018 Imm-Pneumococcal 50+ (1 of 1 - PCV) 2023 Imm-Zoster, Recombinant (1 of 2) 2023 Alcohol and Drug Screen 12/02/2024 Depression Annual Screen 12/02/2024 Hoy-RMBCG-23 (3 - season) 08/02/202511/17/ 022, 09/07/2021 Imm-Influenza (#1) 2025 Cervical Ablation/Cold-Knife Conization Discontinued Cervical Cryotherapy Discontinued Colposcopy Discontinued Excision/Leep Discontinued HPV Genotyping Discontinued Vaginal Pap Discontinued Vulvoscopy Discontinued Insurance [employer] PLAN Member Subscriber Plan / Payer (Ef fective 2022-Present) Name:Ondina Carr Relation to Subscriber:Self Name:Ondina Carr Payer ID:[id number] Group ID:[id number] Type:Medicaid Address: [facility] [address] [place] [address]
--- OUTSIDE RECORDS SUMMARY | 2025-09-17 11:31 | XMS_ITS | Clinical Summary ---
Author Organization 175 [facility] Address [address] [place] [address] Phone Care Team Providers Care Body Service Team Member Name Role Phone Elizabeth Bunn MD Primary Care Provider [phone] Allergies Active Allergy Reactions Criticality Noted Date Comments Apple 06/17/2018 Oral allergy syndrome Barrow (Prunus Persica) 06/17/2018 Oral allergy syndrome Pear 06/17/2018 Oral allergy syndrome Medications inhalational spacing device inhaler 1 Device by Not Applicable route. 03/25/20 18 Active ibuprofen (ADVIL,MOTRIN) 600 mg tablet Take 1 tablet (600 mg total) by mouth. 06/19/20 13 Active fluticasone propionate (FLONASE) 50 mcg/actuation nasal spray Administer 1 spray into affected nostril(s). 08/02/20 20 Active EPINEPHrine (EpiPen 2-Edison) 0.3 mg/0.3 mL injection Inject 0.3 mL (0.3 mg total) as directed. 08/28/20 24 Active cetirizine (ZyrTEC) 10 mg tablet Take 1 tablet (10 mg total) by mouth. 08/28/20 24 Active albuterol HFA (PROAIR HFA ; PROVENTIL HFA ; VENTOLIN HFA) 90 mcg/actuation inhaler Inhale 2 puffs by mouth. 08/28/20 24 Active azelastine (ASTELIN) 137 mcg (0.1 %) nasal spray Administer 2 sprays into affected nostril(s). 08/02/20 20 Active montelukast (SINGULAIR) 10 mg tablet Take 1 tablet (10 mg total) by mouth. 08/28/20 24 Active Dupixent Pen 300 mg/2 mL pen 08/18/20 24 Active triamcinolone (NASACORT) 55 mcg nasal inhaler INHALE 1 TO 2 SPRAYS EACH NOSTRIL ONCE A DAY 05/26/20 24 Active amitriptyline (ELAVIL) 10 mg tablet Take 1 tablet (10 mg total) by mouth at bedtime. 30 each 5 06/09/20 25 026 Active budesonide-for moteroL (SYMBICORT) 160-4.5 mcg/actuation inhaler INHALE 2 PUFFS INTO LUNGS 2 TIMES A DAY 30.6 each 1 08/20/20 25 Active Vitamin D3 50 mcg (2,000 unit) tablet TAKE 1 TABLET BY MOUTH EVERY DAY 90 tablet 1 08/20/20 25 Active amLODIPine (NORVASC) 10 mg tablet TAKE 1 TABLET BY MOUTH 1 TIME EACH DAY. 90 tablet 1 08/20/20 25 Active budesonide-for moteroL (SYMBICORT) 160-4.5 mcg/actuation inhaler Inhale 2 puffs by mouth. 08/28/20 24 025 Discontinued Vitamin D3 50 mcg (2,000 unit) tablet TAKE 1 TABLET BY MOUTH EVERY DAY 90 tablet 1 02/23/20 25 025 Discontinued amLODIPine (NORVASC) 10 mg tablet Take 1 tablet (10 mg total) by mouth 1 (one) time each day. 30 each 5 03/09/20 25 025 Discontinued Active Problems Problem Noted Date Diagnosed Date Vitiligo 06/09/2025 De Quervain's tenosynovitis 10/06/2024 DM (diabetes mellitus), [...] Overview (09/30/2024): January [address] [facility]: Mild on right and early on left Fibromyalgia 06/28/2017 Overview (09/30/2024): widespread pains, pos SS-A, SS-B antibodies Glucose intolerance (impaired glucose tolerance) 06/28/2017 Perennial allergic rhinitis 06/03/2017 HTN (hypertension) 06/19/2013 Occipital headache 06/19/2013 Immunizations Immunization Administration Dates Next Due Influenza Quadravalent, MDCK , 0.5ml, preservative free (Flucelvax) 6mo and older 08/27/2023 Influenza trivalent, 0.5mL, preservative free (Fluarix; FluLaval; Fluzone) ages 6mo and older (Afluria) 3 years and older 08/22/2017,10/31/2016 Influenza, Unspecified 09/10/2018 CampEasy SARS-CoV-2 COVID-19, mRNA, LNP-S, preservative free 09/07/2021,02/05/2021,01/15/2021 Pneumococcal conjugate 20 va lent (Prevnar 20, PCV 20) 2mo and older 08/23/2023 Tdap Tetanus diptheria acell ular pertussis (Boostrix; Adacel) 7yo and older 08/27/2023 Surgical History Surgery Date Site/Laterality Comments HYSTERECTOMY 2009 PROCEDURE: HISTORICAL HYSTERECTOMY; COMMENT: for bleeding - fibroids BREAST LUMPECTOMY PROCEDURE: HISTORICAL BREAST LUMPECTOMY SECTION PROCEDURE: HISTORICAL DELIVERY BREAST BIOPSY Left PROCEDURE: BX BREAST; PERC NEEDLE CORE W/IMAG [...] sides; COMMENT: January [address] [facility]: Mild on right and early on left [...] for your loved ones. For example, child specialist or elderly care for an older adult? [...] Date Recorded What is your living situation? Unrecognized valu e 03/06/2025 Interpersonal Safety Answer Date Record ed Physical Abuse Unrecognized value 01/29/2025 Verbal Abuse Unrecognized value 01/29/2025 Education Answer Date Recorded What is the highest level of school you have completed or the highest degree you have received? Bachelor's degree (e.g., BA, AB, BS) 06/09/2025 Comments No Sex and Gender Information Value Date Recorded Sex Assigned at Female 01/28/2025 4:49 PM EST Legal Sex Female 2:25 AM EST Gender Identity Female 01/28/2025 4:49 PM EST Sexual Orientation Straight 01/29/2025 6: 47 AM EST Obstetrics History Para Term AB IAB SAB Ectopic Multiple Livin g Live Births 2 Last Filed Vital Signs Vital Sign Reading Time Taken Comments Blood Pressure 132/78 06/09/2025 11:41 AM EDT Pulse 69 06/09/2025 11:41 AM EDT Temperature 36.3 C (97.3 F) 01/29/2025 8:44 AM EST Respiratory Rate 18 01/29/2025 9:04 AM EST Oxygen Saturation 99% 06/09/2025 11:41 AM EDT Inhaled Oxygen Concentration - - Weight 86.2 kg (190 lb) 06/11/2025 8:27 AM EDT Height 152.4 cm (5') 06/11/2025 8:27 AM EDT Body Mass Index 37.11 06/11/2025 8:27 AM EDT Plan of Treatment Upcoming Encounters Date Type Department Care Team (Late st Contact Info) Description 06/10/2026 10:00 AM EDT Office Visit Internal Medicine - [place] [address] [facility] [address] [place] [phone] Elizabeth Bunn MD [address] [place] [phone] Health Maintenance Due Date Last Done Comments Hepatitis B Vaccines (1 of 3 - 19+ 3-dose series) 1992 RSV Immunization Adult Patients (1 - Risk 50-74 years 1-dose series) 2023 COVID-19 Vaccine ( season) 2025 11/17/2022, 09/07/2021, 02/05/2021, Additional history exists Influenza Vaccine (#1) 2025 , 09/10/2018, 08/22/2017, Additional history exists Zoster Vaccines (2 of 2) 10/31/2025 09/05/2025 Social Influencers of Health Screening 03/06/2026 03/06/2025 Hypertension/CHF/CAD Annual BMP Blood Test 06/11/2026 06/11/2025, 08/28/2024, 08/28/2024 Breast Cancer Screening 06/11/2027 06/11/20, 03/15/2023, 10/06/2020, Additional history exists Cholesterol Screening (Lipid Panel) 06/11/2030 06/11/2025, 08/28/2024, 08/28/2024 DTaP,Tdap,and Td Vaccines (2 - Td or Tdap) 08/27/2033 08/27/2023 Colorectal Cancer Screening: Colonoscopy 01/29/2035 01/29/2025 Cervical Cancer Screening: Pap Smear 01/03/2090 Postponed from 1994 (Not clinically appropriate to address at this time) Hepatitis C Screening Completed 03/28/2023 Pneumococcal Vaccine: 50+ Years Completed 08/23/2023 Depression Screening Completed 03/06/2025 HIV Screening Completed 06/11/2025 HIB Vaccines Aged Out No longer eligi [...] 20 months Aged Out No longer eligible b ased on patient's age to complete this topic Varicella Vaccines Aged Out No longer eligible based on patient's age to complete this topic Procedures Procedure Name Priority Date/Time Associated Diagnosis Comments HIV 1, 2 ANTIBODY, P24 ANTIGEN WITH REFLEX TO DIFFERENTIATION Routine 06/11/2025 8:54 AM EDT Encounter for annual physical exam COMPREHENSIVE METABOLIC PANEL Routine 06/11/2025 8:54 AM EDT Encounter for annual physical exam Other fatigue LIPID PANEL WITH REFLEX TO DIRECT LDL Routine 06/11/2025 8:54 AM EDT Encounter for annual physical exam Encounter for lipid screening for cardiovascular disease MG MAMMO DIGITAL SCREENING W JONATAN BILAT Routine 06/11/2025 8:37 AM EDT Encounter for screening mammogram for malignant neoplasm of breast COLONOSCOPY Routine 01/29/2025 8:43 AM EST Colon cancer screening HM HEPATITIS C SCREENING Routine 03/28/2023 from Last 3 Months or Most Recently Relevant to Health Maintenance Results * HIV 1,2 antibody, p24 antigen with reflex to differentiation (06/11/2025 8:54 AM EDT) [facility] HIV Combo AB/AG Negative Negative LAB CHEMISTRY METHOD 06/11/2025 4:53 PM EDT [facility] Blood Venous blood specimen / Unknown Venipuncture / Unknown 06/11/2025 8:54 AM EDT 06/11/2025 8:54 AM EDT Narrative [facility] - 06/11/2025 4:53 PM EDT This assay is a 4th generation assay allowing for earlier detection of HIV infection by detecting the presence of the HIV-1 p24 antigen as well as the traditional antibodies to HIV type 1 (including group O) and type 2. Use of a 4th generation assay is the current CDC recommendation for HIV screening. Elizabeth Bunn MD LAB BLOOD ORDERABLES Final Resul t [facility] [address] [place] [address], [place] [phone] * Lipid panel with reflex to direct LDL (06/11/2025 8:54 AM EDT) Pathologist [facility] Cholesterol 129 0 - 200 mg/dL LAB CHEMISTRY METHOD 06/11/2025 2:55 PM EDT [facility] Triglycerides 100 0 - 150 mg/dL LAB CHEMISTRY METHOD 06/11/2025 2:55 PM EDT [facility] HDL 40 >=40 mg/dL LAB CHEMISTRY METHOD 06/11/2025 2:55 PM EDT [facility] LDL Calculated 69 0 - 100 mg/dL LAB CHEMISTRY METHOD 06/11/2025 2:55 PM EDT [facility] VLDL Cholesterol Germain 20 mg/dL LAB CHEMISTRY METHOD 06/11/2025 2:55 PM EDT [facility] Non HDL Chol. (LDL+VLDL) 89 <145 mg/dL LAB CHEMISTRY METHOD 06/11/2025 2:55 PM EDT [facility] Chol/HDL Ratio 3.2 0.0 - 4.4 LAB CHEMISTRY METHOD 06/11/2025 2:55 PM EDT [facility] Blood Venous blood specimen / Unknown Venipuncture / Unknown 06/11/2025 8:54 AM EDT 06/11/2025 8:54 AM EDT Elizabeth Bunn MD LAB BLOOD ORDERABLES Final Resul t [facility] [address] [place] [address], [place] [phone] * Comprehensive metabolic panel (06/11/2025 8:54 AM EDT) Sodium 141 133 - 145 mmol/L LAB CHEMISTRY METHOD 06/11/2025 2:55 PM T [facility] Potassium 3.9 3.5 - 5.5 mmol/L LAB CHEMISTRY METHOD 06/11/2025 2:55 PM T [facility] Chloride 107 96 - 110 mmol/L LAB CHEMISTRY METHOD 06/11/2025 2:55 PM EDT [facility] CO2 27 21 - 32 mmol/L LAB CHEMISTRY METHOD 06/11/2025 2:55 PM T [facility] Anion Gap 7 3 - 11 LAB CHEMISTRY METHOD 06/11/2025 2:55 PM EDT [facility] Glucose 91 70 - 100 mg/dL LAB CHEMISTRY METHOD 06/11/2025 2:55 PM [facility] BUN 11 5 - 25 mg/dL LAB CHEMISTRY METHOD 06/11/2025 2:55 PM [facility] Creatinine 0.62 0.50 - 1.10 mg/dL LAB CHEMISTRY METHOD 06/11/2025 2:55 PM [facility] eGFR 107 >=60 mL/min/1. 73m2 LAB CHEMISTRY METHOD 06/11/2025 2:55 PM [facility] Comment:Calculation based on the Chronic Kidney Disease Epidemiology Collaboration (CKD-EPI) equation refit without adjustment for race. BUN/Creatinine Ratio 17.7 LAB CHEMISTRY METHOD 06/11/2025 2:55 PM [facility] Calcium 9.0 8.5 - 10.5 mg/dL LAB CHEMISTRY METHOD 06/11/2025 2:55 PM [facility] AST (SGOT) 19 10 - 42 unit/L LAB CHEMISTRY METHOD 06/11/2025 2:55 PM [facility] ALT (SGPT) 26 10 - 60 unit/L LAB CHEMISTRY METHOD 06/11/2025 2:55 PM [facility] Alkaline Phosphatase 83 42 - 121 unit/L LAB CHEMISTRY METHOD 06/11/2025 2:55 PM [facility] Total Protein 7.7 6.0 - 8.0 g/dL LAB CHEMISTRY METHOD 06/11/2025 2:55 PM [facility] Albumin 3.8 3.2 - 5.0 g/dL LAB CHEMISTRY METHOD 06/11/2025 2:55 PM [facility] Total Bilirubin 0.5 0.0 - 1.4 mg/dL LAB CHEMISTRY METHOD 06/11/2025 2:55 PM [facility] Blood Venous blood specimen / Unknown Venipuncture / Unknown 06/11/2025 8:54 AM EDT 06/11/2025 8:54 AM EDT Elizabeth Bunn MD LAB BLOOD ORDERABLES Final Resul t [facility] [address] [place] [address], * MG Mammo Digital Screening w Jonatan bilat (06/11/2025 8:37 AM EDT) Anatomical Region Laterality Modality Breast Bilateral Mammography 06/11/2025 9:10 AM EDT Impressions 06/11/2025 9:20 AM EDT No mammographic evidence of malignancy. A negative mammogram in the presence of a clinically suspicious palpable abnormality does not preclude the possibility of malignancy or alter the indications for biopsy. PQRI CPT II 3342F Code 75716, 68624 PQRI 225 CPT II 7025F TISSUE DENSITY: There are scattered areas of fibroglandular density. (BI-RADS category B) IMPRESSION: Benign. BI-RADS CATEGORY: 2 - BENIGN RECOMMENDATION: Screening bilateral mammogram is recommended in 1 year. Mammo Location: [facility], [address] [place] [id number] -------- FINAL REPORT -------- Dictated By: John Carroll Dictated Date: 06/11/2025 09:10 ET Assigned Physician: John Carroll Reviewed and Electronically Signed By: John Carroll Signed Date: 06/11/2025 09:20 ET Workstation ID: [id number] Transcribed By: Self Edit Transcribed Date: 06/11/2025 09:10 ET Narrative 06/11/2025 9:20 AM EDT CLINICAL: The patient is a 50 years Female presenting for routine screening mammography. The patient has undergone previous bilateral breast biopsies, pathology benign. COMPARISON: Most recently 03/12/2023 and most remotely 11/09/2015. TECHNIQUE: Full-field digital mammography of the breasts bilaterally consisting of tomosynthesis in MLO and CC projection is performed in the fotobabblee 2000-D unit. Computer aided detection utilizing the iCAD system was utilized. FINDINGS: The breasts are again seen to be composed of a combination of fatty and fibroglandular elements. A 2.4 cm lobulated mass in the upper-outer quadrant of the left breast, containing a tissue marker, is again seen. A lymph node with characteristically benign appearance is also present in the upper-outer quadrant of the left breast. Scattered bilateral punctate, vascular, and rim calcifications are stable. There is no suspicious cluster of microcalcifications, mass, or area of architectural distortion. There is no skin thickening or nipple retraction. Procedure Note John Carroll MD - 06/11/2025 CLINICAL: The patient is a 50 years Female presenting for routinescreening mammography. The patient has undergone previous bilateralbreast biopsies, pathology benign. COMPARISON: Most recently 03/12/2023 and most remotely 11/09/2015. TECHNIQUE: Full-field digital mammography of the breasts bilaterallyconsisting of tomosynthesis in MLO and CC projection is performed in the[employer]apshot, [employer] 2000-D unit. Computer aided detection utilizing the iCADsystem was utilized. FINDINGS: The breasts are again seen to be composed of a combination offatty and fibroglandular elements. A 2.4 cm lobulated mass in theupper-outer quadrant of the left breast, containing a tissue marker, isagain seen. A lymph node with characteristically benign appearance isalso present in the upper-outer quadrant of the left breast. Scatteredbilateral punctate, vascular, and rim calcifications are stable. There isno suspicious cluster of microcalcifications, mass, or area ofarchitectural distortion. There is no skin thickening or nippleretraction. IMPRESSION: No mammographic evidence of malignancy. A negative mammogram in the presence of a clinically suspicious palpableabnormality does not preclude the possibility of malignancy or alter theindications for biopsy. PQRI CPT II 3342F Code 32085, 28220 PQRI 225 CPT II 7025F TISSUE DENSITY: There are scattered areas of fibroglandular density.(BI-RADS category B) IMPRESSION: Benign. BI-RADS CATEGORY: 2 - BENIGN RECOMMENDATION: Screening bilateral mammogram is recommended in 1 year. Mammo Location: [facility], [address] [place] [id number] -------- FINAL REPORT -------- Dictated By: John Carroll Dictated Date: 06/11/2025 09:10 ET Assigned Physician: John Carroll Reviewed and Electronically Signed By: John Carroll Signed Date: 06/11/2025 09:20 ET Workstation ID: [id number] Transcribed By: Self Edit Transcribed Date: 06/11/2025 09:10 ET Elizabeth Bunn MD [facility] BI PROCEDURES Final Result * COLONOSCOPY Anesthesia - MAC; [facility] ENDOSCOPY (01/29/2025 8:43 AM EST) Anatomical Region Laterality Modality Endoscopy 01/29/2025 8:28 AM EST Impressions 01/29/2025 8:44 AM EST - The entire examined colon is normal on direct and retroflexion views. - No specimens collected. Recommendation: - Discharge patient to home. - Repeat colonoscopy in 10 years for screening purposes. Narrative 01/29/2025 8:[address] [facility] GI Patient Name: Ondina Carr Procedure Date: [...] the procedure, a History and Physical was performed, and patient medications and allergies were reviewed. The patient is competent. The risks and benefits of the procedure and the sedation options and risks were discussed with the patient. All questions were answered and informed consent was obtained. Patient identification and proposed procedure were verified by the physician, the nurse, the insecticide sprayer and the hvac/r service technician in the pre-procedure area in the endoscopy suite. Mental Status Examination: alert and oriented. Airway Examination: normal oropharyngeal airway and neck mobility. Respiratory Examination: clear to auscultation. CV Examination: normal. Prophylactic Antibiotics: The patient does not require prophylactic antibiotics. Prior Anticoagulants: The patient has taken no anticoagulant or antiplatelet agents. ASA Grade Assessment: II - A patient with mild systemic disease. After reviewing the risks and [...] monitored throughout the procedure. The physical status of the patient was re-assessed after the procedure. After I obtained informed consent, the scope was passed under direct vision. Throughout the procedure, the patient's blood pressure, pulse, and oxygen [...] Professional --- Z12.11, Encounter for screening for malignant neoplasm of colon CPT copyright 2020 [employer]. All rights reserved. The codes documented in this report are preliminary and upon concrete saw operator review may be revised to meet current compliance requirements. Ne Arevalo MD 01/29/2025 8:44:02 AM This report has been signed electronically.Ne Arevalo MD Number of Addenda: 0 Note Initiated On: 01/29/2025 8:28 AM Scope Withdrawal Time: 0 hours 5 minutes 7 seconds Scope In: 8:35:19 AM Scope Out: 8:42:43 AM Endoscopy Department at [facility] - [address] [place] [phone] Procedure Note Ne Arevalo MD - 01/29/2025 [facility] Patient Name: Ondina Carr Procedure Date: [...] the physician, the nurse, theanesthetist and the hvac/r service technician in the pre-procedure area in the [...] for malignantneoplasm of colon CPT copyright 2020 [employer]. All rights reserved. The codes documented in this report are preliminary and upon concrete saw operator reviewmay be revised to meet current compliance requirements. Ne Arevalo MD 01/29/2025 8:44:02 AM This report has been signed electronically.Ne Arevalo MD Number of Addenda: 0 Note Initiated On: 01/29/2025 8:28 AM Scope Withdrawal Time: 0 hours 5 minutes 7 seconds Scope In: 8:35:19 AM Scope Out: 8:42:43 AM Endoscopy Department at [facility] - [address] [place] [phone] IMPRESSION: - The entire examined colon is normal on direct and retroflexion views. - No specimens collected. Recommendation: - Discharge patient to home. - Repeat colonoscopy in 10 years for screening purposes. Ne Arevalo MD GI~PROCEDURE ORDERABLES Fin al Result * Hepatitis C Screening (03/28/2023) Hepatitis C Screening abstracted Historical Provider HEALTH MAINTENANCE Final Result from Last 3 Months or Most Recently Relevant to Health Maintenance Insurance [facility] Care Teams Body Service Team Member Relationship Specialty Start Date End Date Elizabeth uBnn MD [address] [place] [phone] PCP - General 02/20/23
== END 2025-09-17 10:19 | disposition home or self-care (01) ==
LOC: HO.HPS 09:53
PROVIDERS: PCP Internal Medicine; Visit Provider Hospitalist
DX: J45.50 Severe persistent asthma, uncomplicated (principal); J30.9 Allergic rhinitis, unspecified
CPT/HCPCS: 99214

== ENCOUNTER → 2025-09-17 09:52 | Outpatient (BNVA) | payer OTHER, SELFPAY | PROVIDERS: PCP Internal Medicine; Visit Provider Hospitalist | DX: J45.50 Severe persistent asthma, uncomplicated (principal); J30.9 Allergic rhinitis, unspecified | CPT/HCPCS: 99212 ==